=== PATIENT | female | born 1955 | race Caucasian/White ===

== ENCOUNTER → 2022-08-18 13:50 | Outpatient (BNVA) | payer MEDICARE, SELFPAY | PROVIDERS: PCP Internal Medicine; Referring Provider Internal Medicine; Visit Provider Internal Medicine | DX: E03.9 Hypothyroidism, unspecified (principal); H57.89 Other specified disorders of eye and adnexa; E07.9 Disorder of thyroid, unspecified | CPT/HCPCS: 99204 ==

== ENCOUNTER → 2022-10-22 10:47 | Outpatient (BNVA) | payer MEDICARE, SELFPAY | PROVIDERS: PCP Internal Medicine; Visit Provider Internal Medicine | DX: E03.9 Hypothyroidism, unspecified (principal); E07.9 Disorder of thyroid, unspecified; H57.89 Other specified disorders of eye and adnexa | CPT/HCPCS: 99214 ==

== ENCOUNTER → 2023-01-13 09:50 | Outpatient (BNVA) | payer MEDICARE, SELFPAY | PROVIDERS: PCP Internal Medicine; Visit Provider Internal Medicine | DX: E03.9 Hypothyroidism, unspecified (principal); H57.89 Other specified disorders of eye and adnexa; E07.9 Disorder of thyroid, unspecified | CPT/HCPCS: 99214 ==

== ENCOUNTER → 2023-05-04 10:46 | Outpatient (BNVA) | payer MEDICARE, SELFPAY | PROVIDERS: PCP Internal Medicine; Visit Provider Internal Medicine | DX: E03.9 Hypothyroidism, unspecified (principal); H57.89 Other specified disorders of eye and adnexa; E07.9 Disorder of thyroid, unspecified; E05.00 Thyrotoxicosis with diffuse goiter without thyrotoxic crisis or storm | CPT/HCPCS: 99214; J1030 ==

== ENCOUNTER → 2023-09-09 10:27 | Outpatient (BNVA) | payer MEDICARE, SELFPAY | PROVIDERS: PCP Internal Medicine; Visit Provider Internal Medicine | DX: E05.00 Thyrotoxicosis with diffuse goiter without thyrotoxic crisis or storm; H57.89 Other specified disorders of eye and adnexa; E07.9 Disorder of thyroid, unspecified; R63.5 Abnormal weight gain; Z68.29 Body mass index [BMI] 29.0-29.9, adult | CPT/HCPCS: 99214 ==

== ENCOUNTER → 2024-01-10 09:49 | Outpatient (BNVA) | payer MEDICARE, SELFPAY | PROVIDERS: PCP Internal Medicine; Visit Provider Internal Medicine | DX: H57.89 Other specified disorders of eye and adnexa (principal); E07.9 Disorder of thyroid, unspecified; E05.90 Thyrotoxicosis, unspecified without thyrotoxic crisis or storm; E05.00 Thyrotoxicosis with diffuse goiter without thyrotoxic crisis or storm; R63.5 Abnormal weight gain; Z79.890 Hormone replacement therapy; Z68.30 Body mass index [BMI] 30.0-30.9, adult | CPT/HCPCS: 99214 ==

== ENCOUNTER → 2024-06-07 08:06 | Outpatient (BNVA) | payer MEDICARE, SELFPAY | PROVIDERS: PCP Internal Medicine; Visit Provider Internal Medicine | DX: E05.90 Thyrotoxicosis, unspecified without thyrotoxic crisis or storm (principal); H57.89 Other specified disorders of eye and adnexa; E07.9 Disorder of thyroid, unspecified; E05.00 Thyrotoxicosis with diffuse goiter without thyrotoxic crisis or storm; R63.5 Abnormal weight gain | CPT/HCPCS: 99214 ==

== ENCOUNTER → 2024-10-08 09:52 | Outpatient (BNVA) | payer MEDICARE, SELFPAY | PROVIDERS: PCP Internal Medicine; Visit Provider Internal Medicine | DX: E05.90 Thyrotoxicosis, unspecified without thyrotoxic crisis or storm (principal); R63.5 Abnormal weight gain; E05.00 Thyrotoxicosis with diffuse goiter without thyrotoxic crisis or storm; H57.89 Other specified disorders of eye and adnexa; E07.9 Disorder of thyroid, unspecified | CPT/HCPCS: 99214 ==

== ENCOUNTER → 2025-02-11 08:31 | Outpatient (BNVA) | payer MEDICARE, SELFPAY | PROVIDERS: PCP Internal Medicine; Visit Provider Internal Medicine | DX: H57.89 Other specified disorders of eye and adnexa (principal); E05.00 Thyrotoxicosis with diffuse goiter without thyrotoxic crisis or storm; R63.5 Abnormal weight gain | CPT/HCPCS: 99214 ==